=== PATIENT | female | born 1995 | race Hispanic/Latino ===

== ENCOUNTER 2018-10-26 19:39 | Emergency (ER) | payer OTHER ==
[~2018-10-26] VITALS: Ht 149.9 cm; Wt 67.6 kg
[2018-10-26] MEDS ORDERED: IBUPROFEN 200 MG TAB PO ONE (20:15)
[2018-10-26] MEDS ORDERED: ACETAMINOPHEN 325 MG TAB PO ONE (20:15)
[2018-10-26] MEDS ORDERED: CEFTRIAXONE SOD 1 GM VIAL IM ONE (20:15)
[2018-10-26] MEDS ORDERED: LIDOCAINE HCL 1% LOCAL INJ 20 ML VIAL ONE (20:44)
[2018-10-26 21:55] VITALS: BP 121/77
== END 2018-10-26 21:28 | disposition home or self-care (01) ==
LOC: FSED 19:39
DX: R05 Cough (principal); J20.9 Acute bronchitis, unspecified; H66.91 Otitis media, unspecified, right ear; J00 Acute nasopharyngitis [common cold]; J04.0 Acute laryngitis
CPT/HCPCS: 96372; 99283; J0696; J2001